=== PATIENT | male | born 1980 | race Caucasian/White ===

== ENCOUNTER 2020-01-27 19:20 | Emergency (ER) | payer SELFPAY ==
[~2020-01-27] VITALS: Ht 182.9 cm; Wt 69.0 kg
[2020-01-27 19:24] VITALS: BP 133/91
[2020-01-27] MEDS ORDERED: CLIN150C8 PO (21:19)
== END 2020-01-27 21:32 | disposition home or self-care (01) ==
LOC: ER 19:21
DX: H91.8X2 Other specified hearing loss, left ear (principal); H92.20 Otorrhagia, unspecified ear; Z88.0 Allergy status to penicillin
CPT/HCPCS: 99283